=== PATIENT | male | born 1955 | race Caucasian/White ===

== ENCOUNTER 2022-01-23 10:23 | Emergency (ER) | payer OTHER ==
[~2022-01-23] VITALS: Ht 177.8 cm; Wt 72.6 kg
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
[2022-01-23 10:37] VITALS: BP_SYST 155
--- NOTE | 2022-01-23 11:44 | NUR ---
PER ADMITTING STAFF, PT LEFT WITHOUT BEING SEEN
== END 2022-01-23 11:44 | disposition left against medical advice (07) ==
LOC: SED 10:23
DX: M54.2 Cervicalgia (principal); M54.50 Low back pain, unspecified; Z53.21 Procedure and treatment not carried out due to patient leaving prior to being seen by health care provider